=== PATIENT | female | born 1940 | race African-American/Black ===

== ENCOUNTER 2017-01-29 14:54 | Emergency (ER) | payer MEDICARE, MEDICAID ==
[2017-01-29] MEDS ORDERED: Albuterol Sulfate 2.5 mg/0.5 ml Neb ONE (15:11)
== END 2017-01-29 18:44 | disposition home or self-care (01) ==
LOC: NAV ERS 14:54
DX: J44.9 Chronic obstructive pulmonary disease, unspecified (principal); E11.9 Type 2 diabetes mellitus without complications; K21.9 Gastro-esophageal reflux disease without esophagitis; E78.5 Hyperlipidemia, unspecified; I11.0 Hypertensive heart disease with heart failure; I50.9 Heart failure, unspecified; F32.9 Major depressive disorder, single episode, unspecified; Z79.82 Long term (current) use of aspirin; Z79.84 Long term (current) use of oral hypoglycemic drugs; Z79.52 Long term (current) use of systemic steroids; Z79.899 Other long term (current) drug therapy
CPT/HCPCS: J7611

== ENCOUNTER 2017-05-31 13:53 | Emergency (ER) | payer MEDICARE, OTHER ==
--- NOTE | 2017-05-31 14:47 | RAD ---
PORTABLE CHEST: Date: 05/31/17 PROVIDED CLINICAL HISTORY: Shortness of breath. FINDINGS: Comparison with 05/08/17. Evaluation is limited by patient body habitus. The cardiac and mediastinal silhouette are unchanged in appearance. Vascular calcification involves the aortic arch. Pulmonary vascular congestion is again suspected. No focal air space disease, pleur al fluid, or pneumothorax is apparent. IMPRESSION: Cardiomegaly and mild pulmonary vascular congestion suggests congestive heart failure. Follow-up is recommended. POS: MARCELA
[2017-05-31 14:52] LABS: Actual Bicarbonate (HCO3a) 33.7 mEq/L (22-26); Base Excess (BEa) 8.7 mEq/L (0 (+/-) 2.5); pH, Arterial 7.46 (7.35-7.45)
[2017-05-31 14:53] LABS: Hemoglobin (Hb) 10.9 g/dL (12.0-16.0); Puncture Site RRA
[2017-05-31 15:10] LABS: #Basophils 0.1 thou/uL (0.0-0.2); #Eosinphils 0.2 thou/uL (0.0-0.7); #Lymphocytes 2.6 thou/uL (1.20-3.40); #Monocytes 0.5 thou/uL (0.11-0.59); #Neutrophils 4.5 thou/uL (1.40-6.50); %Basophils 0.7 % (0.0-1.0); %Eosinophils 2.4 % (0.0-10.0); %Lymphocytes 32.9 % (21.0-51.0); %Monocytes 6.2 % (0.0-10.0); %Neutrophils 57.8 % (42.0-75.0); Hemoglobin 11.3 g/dL (12.0-16.0); Hypochromia SLIGHT = 6-15 cells (100X) (0-5/hpf); MDiff Complete? YES; Mean Corpuscular Hemoglobin 29.3 pg (27.0-31.0); Mean Platelet Volume 8.7 fL (7.4-10.4); Microcytosis SLIGHT = 6-15 cells (100X) (0-5/hpf); PLT Morphology Comment Appears Decreased; Platelet Count 123 thou/uL (130-400); RBC Distribution Width 17.2 % (11.5-14.5); Red Blood Cell (RBC) Count 3.87 mill/uL (4.20-5.40); White Blood Cell (WBC) Count 7.8 thou/uL (4.8-10.8)
[2017-05-31 15:13] LABS: ALT (SGPT) 11 U/L (8-55); AST (SGOT) 10 U/L (5-34); Albumin 3.5 g/dL (3.4-4.8); Alkaline Phosphatase 55 U/L (40-150); Anion Gap 15 mmol/L (10-20); BUN (Urea Nitrogen) 12 mg/dL (9.8-20.1); Bilirubin, Total 1.1 mg/dL (0.2-1.2); Calc. Creatinine Clearance 0 mL/min (70-130); Calcium 9.2 mg/dL (7.8-10.44); Carbon Dioxide 31 mmol/L (23-31); Chloride 102 mmol/L (98-107); Estimated GFR-MDRD 76; Globulin 3.8 g/dL (2.4-3.5); Glucose 127 mg/dL (83-110); Potassium 3.6 mmol/L (3.5-5.1); Protein, Total 7.3 g/dL (6.0-8.3); Sodium 144 mmol/L (136-145); Troponin I 0.013 ng/mL (< 0.028)
[2017-05-31] MEDS ORDERED: Furosemide 20 MG/2 ML VIAL ONE (17:52)
== END 2017-05-31 19:34 | disposition short-term general hospital (02) ==
LOC: NAV ERS 13:53
DX: I11.0 Hypertensive heart disease with heart failure (principal); I50.9 Heart failure, unspecified; R09.02 Hypoxemia; D64.9 Anemia, unspecified; J44.9 Chronic obstructive pulmonary disease, unspecified; E11.9 Type 2 diabetes mellitus without complications; K21.9 Gastro-esophageal reflux disease without esophagitis; E78.5 Hyperlipidemia, unspecified; E66.9 Obesity, unspecified; F32.9 Major depressive disorder, single episode, unspecified; Z79.82 Long term (current) use of aspirin; Z79.84 Long term (current) use of oral hypoglycemic drugs; Z79.52 Long term (current) use of systemic steroids; Z79.899 Other long term (current) drug therapy
CPT/HCPCS: 36415; 71010; 80053; 82553; 82805; 83880; 84484; 85025; 85379; 93005; 94640; 94760; 96374; J1940; J7620